=== PATIENT | female | born 1950 | race Caucasian/White ===

== ENCOUNTER 2020-01-23 09:47 | Inpatient (IN) | payer MEDICARE, OTHER ==
[~2020-01-23] VITALS: Ht 162.6 cm; Wt 96.7 kg
[2020-01-23] VITALS (11 sets, daily range): BP systolic 114–135; BP diastolic 48–83; PULSE 70–75; TEMP 98–98.7
[~2020-01-23 09:47] MED LIST: CALCIUM 600600 M2 PO; LEVOTHYROXINE0.1 MG PO; LISINOPRIL/HCTZ1 TA1 PO
--- NOTE | 2020-01-23 11:40 | NUR ---
Patient to room via stretcher by EMS. Rates pain in right lower abd 7-03/02, describes as pulling. Patient says that she wishes the pain would be over with. Has not had a bowel movement since 01/20/20. Not able to pass flatus. IV to left hand with NS at 125mL/hr. Patient oriented to room and COVID policies at this time.
[2020-01-23] MEDS ORDERED: CALCIUM 600 PLU1 TAB PO (11:56)
[2020-01-23] MEDS ORDERED: LEXAPRO 10MG10 MG PO (11:58)
[2020-01-23] MEDS ORDERED: MIRALAX PA17 GM/Dose PO (11:59)
--- NOTE | 2020-01-23 13:56 | NUR ---
Patient up to bathroom, voids clear yellow urine and says that she was able to pass a small amount of flatus. Continues to have pain in abd and abd distention. Returns to bed. SCD's applied. Denies additional needs.
--- NOTE | 2020-01-23 14:45 | NUR ---
Patient to radiology at this time for test.
--- NOTE | 2020-01-23 15:18 | NUR ---
Patient back to room from radiology. Goes into bathroom. Is able to pass some flatus and was able to have some loose with chunks bowel movement. Returns to bed. Daughter remains in room with the patient. Denies additional needs at this time.
--- NOTE | 2020-01-23 15:54 | NUR ---
Reviewed consent for colonoscopy with possible stent placement with the patient and her daughter. Questions answered. Patient signs consent. Will place in chart. Dr. Nuñez was in room and spoke with the patient and her daughter. Patient says that the Morphine is helping alleviate her pain. Denies any additional needs at this time. Connected to gravity fluids and tubing at this time.
--- NOTE | 2020-01-23 16:24 | NUR ---
Patient taken to endoscopy via bed at this time. Daughter follows patient.
--- NOTE | 2020-01-23 18:10 | NUR ---
Patient returns to room from endoscopy suite via stretcher. Ambulates from stretcher to bathroom. Patient able to void and have large, brown, loose stool. Assisted into bed. Denies pain and explains that her stomach does not feel as distended at it was and it is still sore on the right lower abd but not painful as it was prior to colonoscopy. Daughter in room with the patient.
--- NOTE | 2020-01-23 19:00 | NUR ---
Report given by Otto Shay. Pt currently resting in bed and daughter is at bedside. Pt has her call light within reach and her bed is in lowest position.
--- NOTE | 2020-01-23 21:30 | NUR ---
Pt requested something for pain at this time. Pt was given pain mediction at this time and pt was assisted to the rest room . Pt has had 3 loose bowel movements. Pt stated that she was really tender in her side. Pt has her call light within reach and her bed is in lowest position.
[2020-01-24] VITALS: BP 115/55; PULSE 72; TEMP 98
[2020-01-24 03:59] VITALS: BP 120/52; PULSE 76; TEMP 98.6
[2020-01-24 06:51] LABS: BASO # 0.1 (0.0-0.2); BASO % 0.6 % (0.0-2.0); EOS # 0.1 (0.0-0.7); EOS % 1.3 % (0-4.0); GRAN # 5.4 (1.4-6.5); GRAN % 67.7 % (42.2-75.2); HEMOGLOBIN 11.3 g/dl (12.5-16.0); LYMPH # 1.4 (1.2-3.4); LYMPH % 17.4 % (20.0-51.0); MEAN CELL VOLUME 88 fl (80.0-100.0); MEAN CORPUSCULAR HEMOGLOBIN 29 pg (27.0-31.0); MEAN CORPUSCULAR HGB CONC 33 g/dl (33.0-37.0); MEAN PLATELET VOLUME 10.8 fl (7.4-10.4); MONO % 12.6 % (1.7-9.3); PLATELET COUNT 158 K/mm3 (130-400); RED BLOOD COUNT 3.94 M/mm3 (4.10-5.30); REDCELL DISTRIBUTION WIDTH-CV 13.9 % (11.5-14.5)
[2020-01-24 06:52] LABS: HEMATOCRIT 34.8 % (37.0-47.0)
[2020-01-24 07:00] LABS: CALCIUM 7.9 mg/dL (8.4-10.2); CREATININE, serum 0.67 (0.52-1.25); POTASSIUM 3.5 mmol/L (3.4-5.0)
--- NOTE | 2020-01-24 07:30 | NUR ---
Lying in bed in supine position with eyes closed. Opens eyes when name called out. Says that she continued to have stools through the night. Still has soreness in right flank but nothing like it was before the colonoscopy yesterday. Denies any additional needs at this time.
--- NOTE | 2020-01-24 07:38 | NUR ---
Report was given to CHRIS Shay. Pt has her call light within reach and her bed is in lowest position.
[2020-01-24 07:39] VITALS: BP 115/42; PULSE 74; TEMP 97.9
--- NOTE | 2020-01-24 08:40 | NUR ---
Lying in bed with eyes open. Offered shower but patient declines at this time. Patient says that she would like to rest more and will take shower later. Denies any additional needs at this time.
--- NOTE | 2020-01-24 12:22 | NUR ---
Sitting in bed with eyes open. Explains that she is having minimal pain at this time. Denies any further needs.
[2020-01-24 13:00] VITALS: BP 122/55; PULSE 77; TEMP 98
--- NOTE | 2020-01-24 15:40 | NUR ---
JANET met with the patient to discuss discharge plan. The patient lives alone [place] [facility]. Her in August. She reports independence with ADLs and does not have any DME. The patient's PCP is Dr. Venus Ennis and she receives her medications at [facility]. She reports no difficulties obtaining her meds. The patient does not have advanced directives in EMR, but she reports that she does have them completed and that [facility] should have a copy of them. She states that her three children: Teresita ([phone], [place], [place]), Juan ([place], [place]), and Brittanie ([place]) are her DPOA-HC. JANET attempted to contact Jessa at [facility] to request a copy of the patient's DPOA-HC. JANET left her a voicemail. The patient plans to either return back home or stay with her daughter, Teresita, upon discharge. No additional needs at this time.
--- NOTE | 2020-01-24 15:52 | NUR ---
Rating pain in abd 7-8/10 and would like pain medication. Will administer Morphine as prescribed. Patient continues to work on bowel prep. Denies additional needs or concerns at this time.
[2020-01-24 16:00] VITALS: BP 133/57; PULSE 80; TEMP 98.5
--- NOTE | 2020-01-24 16:35 | NUR ---
Consent for procedure tomorrow reviewed with the patient. Patient verbalizes understanding and signs consent. Consent placed in chart. Patient lying in bed with eyes open. Explains that the Morphine has alleviated her abd pain, only feels the pain when she moves. Continues to drink bowel prep. Denies needs at this time.
[2020-01-24 19:47] VITALS: BP 124/48; PULSE 78; TEMP 99
--- NOTE | 2020-01-24 19:50 | NUR ---
Received report from CHRIS Shay.Pt currently resting in bed taking her bowel prep. Pt has only requested ice. Pt has had some loose stools. Pt has her call light within reach.
[2020-01-25] VITALS (12 sets, daily range): BP systolic 124–146; BP diastolic 43–74; PULSE 64–84; TEMP 97.9–99.7
--- NOTE | 2020-01-25 02:30 | NUR ---
Pt began having nausea at about [address] Nuñez was contacted at this time. He gave an order for Zofan for the nausea. Zofran was given at this time. Pt did stated feeling the nausea after drinking the bowel prep. Pt is back in bed and has her call light within reach.
--- NOTE | 2020-01-25 07:32 | NUR ---
Reported off to CHRIS Kothari. Pt currently lying in bed. LR was hung with extended tubing. Pt has on clean gown and clean linens on bed. Pt was also offered to have a bed bath and pt refused she stated that she feels very weak and wants to lay down. Pt has her call light within reach and her bed is in lowest position.
--- NOTE | 2020-01-25 08:10 | NUR ---
Patient to surgery at this time.
--- NOTE | 2020-01-25 13:45 | NUR ---
Patient returns from surgery. Assessment unchanged except: lap sites x3 and low transverse incision with dressing CDI. Bowel sounds hypoactive. No flatus. Luque catheter patent and draining clear yellow urine. Post op exercises reviewed with patient. No c/o at this time.
--- NOTE | 2020-01-25 17:00 | NUR ---
Orders received per Dr Mai for A-fib RVR. Patient with no c/o symptoms at this time.
[2020-01-25 17:27] LABS: HEMOGLOBIN 11.5 g/dl (12.5-16.0)
[2020-01-25 17:32] LABS: HEMATOCRIT 34.2 % (37.0-47.0)
--- NOTE | 2020-01-25 17:45 | NUR ---
Dr Mai notified of tele report, EKG.
--- NOTE | 2020-01-25 19:26 | NUR ---
Dr Mai notified of continued A-fib RVR, orders received.
--- NOTE | 2020-01-25 20:00 | NUR ---
PT AMBULATES IN HALLWAY WITH STAFF, GAIT STEADY.
--- NOTE | 2020-01-25 21:00 | NUR ---
PT REPORTS FEELING LIKE HER CATHETER ISN'T WORKING. THIS NURSE MANIPULATED CATHETER, DEFLATED AND REINFLATED BALLOON AND URINE APPEARED TO BE FLOWING WELL. PT HAS 3 LAP SITES AND ONE LOW TRANSVERSE INCISION. IVF INFUSING TO LEFT HAND WITHOUT PROBLEM. BOWEL SOUNDS ACTIVE. DENIES PAIN, TAKES SCHEDULED HS MED AND DOSE OF LOVENOX SQ GIVEN. IS ALERT AND ORIENTED X4.
[2020-01-26] VITALS (7 sets, daily range): BP systolic 121–137; BP diastolic 40–59; PULSE 67–76; TEMP 98–98.7
--- NOTE | 2020-01-26 00:30 | NUR ---
PT HAS COPIOUS LIQUID STOOL IN BED. SHE WAS UNAWARE SHE HAD DONE IT.
--- NOTE | 2020-01-26 01:00 | NUR ---
TAKES SCHEDULED ES TYLENOL 2 TABS WITHOUT PROBLEM.
--- NOTE | 2020-01-26 07:07 | NUR ---
Lying in bed with eyes open. Denies pain at this time. Lap sites x3 with bandaids CDI. Low transverse abd incision with gauze dressing CDI. Patient is passing some gas. Was able to have a bowel movement last night. Denies additional needs at this time.
[2020-01-26 07:25] LABS: HEMOGLOBIN 10.6 g/dl (12.5-16.0)
[2020-01-26 07:41] LABS: HEMATOCRIT 31.9 % (37.0-47.0)
[2020-01-26 07:45] LABS: CALCIUM 8.1 mg/dL (8.4-10.2); CREATININE, serum 0.68 (0.52-1.25); POTASSIUM 3.3 mmol/L (3.4-5.0)
--- NOTE | 2020-01-26 08:30 | NUR ---
Patient says that later she would like to get the catheter removed and then shower. Patient says that she did not get a lot of sleep and would like to try to sleep a little before doing all of this. Denies needs at this time.
--- NOTE | 2020-01-26 12:27 | NUR ---
Patient sitting up in bed with eyes open. Rates pain 8/10 but denies need for pain medication at this time. Aamir mar. IV site INT'd. Patient ambulates into bathroom and has large loose brown bowel movement. Passes lots of flatus. Returns into room and sits in chair to eat lunch. Patient says that she will shower and walk in the halls after eating. Denies additional needs at this time.
--- NOTE | 2020-01-26 17:40 | NUR ---
Up in bed watching TV. Has been up in room walking around. Not having much pain at this time. Explained whennext dose of Tylenol is. Informed the patient that we will have a low fiber diet brought up for her to eat for dinner. Patient verbalizes understanding and denies any additional needs at this time.
--- NOTE | 2020-01-26 19:45 | NUR ---
Pt. sitting up in bed at this time. Pt. is A&OX3, assessment complete. INT to lt. hand patent. Abd. laps sites x3 Edges well approximated, LEATHER POLISHER. Low transverse incision with gauze dressing, CDI. Pt. denies pain or other needs, call light within reach.
[2020-01-27 03:55] VITALS: BP 120/51; PULSE 79; TEMP 98.1
[2020-01-27 07:11] VITALS: BP 123/52; PULSE 71; TEMP 98.6
--- NOTE | 2020-01-27 08:00 | NUR ---
PATIENT IS A&O. VSS. PATIENT DENIES PAIN. ABD IS ROUND, SOFT AND WITH POSITIVE BOWL SOUNDS X4 QUADS. PATIENT REPORTS SHE IS PASSING GAS AND HAD A COUPLE LOOSE STOOLS. NO C/O N/V. LEFT HAND IV TO INT. TOLERATING LOW FIBER DIET WELL. ABD LAP SITES X3 AND TRANSVERSE INCISION ARE CD&I. HEAD TO TOE ASSESSMENT WNL. PATIENT INDEPENDENT IN ROOM AND IS HOPING TO DISCHARGE HOME LATER TODAY.
[2020-01-27 11:52] VITALS: BP 118/50; PULSE 71; TEMP 98.6
--- NOTE | 2020-01-27 13:40 | NUR ---
Animal Shelter Clerk met with patient as she is discharging home today. SW read IM form aloud to patient who verbalized understanding then provided verbal consent as signature. SW placed form in chart and provided copy to patient. No additional needs at this time.
--- NOTE | 2020-01-27 17:00 | NUR ---
PATIENT'S RIDE IS HERE. PATIENT GIVEN DISCHARGE INSTRUCTIONS AND F/U APT. ANSWERED ALL QUESTIONS/CONCERNS. DC'D RIGHT HAND IV, COVERED SITE WITH GAUZE & TAPE. PATIENT ESCORTED OUT VIA WC
== END 2020-01-27 17:00 | disposition home or self-care (01) | DRG 331 ==
LOC: SURG 09:47
PROVIDERS: ADMIT Surgery
PROC: 0D7M8DZ Dilation of Descending Colon with Intraluminal Device, Via Natural or Artificial Opening Endoscopic (ICD-10-PCS; 2020-01-23)
PROC: 0DTM4ZZ Resection of Descending Colon, Percutaneous Endoscopic Approach (ICD-10-PCS; principal; 2020-01-25 08:00)
DX: K57.30 Diverticulosis of large intestine without perforation or abscess without bleeding (principal); I10 Essential (primary) hypertension
CPT/HCPCS: A4314; A9284; C1769; C1876; J0330; J0690; J1100; J1650; J2250; J2270; J2405; J2704; J3010; J7030; J7120